=== PATIENT | female | born 1990 | race African-American/Black ===

== ENCOUNTER 2019-10-24 17:05 | Emergency (ER) | payer OTHER ==
[~2019-10-24] VITALS: Ht 167.6 cm; Wt 152.0 kg
[2019-10-24] MEDS ORDERED: NORCO 5-325 TA1 EAC1 PO (20:00)
[2019-10-24] MEDS ORDERED: MEDROLDOSEPACK PO (20:00)
[2019-10-24] MEDS ORDERED: CYCLOBENZAPRINE5 MG PO (20:00)
[2019-10-24 20:10] VITALS: BP 141/83
== END 2019-10-24 20:10 | disposition home or self-care (01) ==
LOC: ER 17:05
DX: M51.26 Other intervertebral disc displacement, lumbar region (principal); Z98.51 Tubal ligation status; Z90.49 Acquired absence of other specified parts of digestive tract